=== PATIENT | male | born 1970 | race Caucasian/White ===

== ENCOUNTER → 2018-04-03 | Outpatient (CLI) | payer OTHER ==
[~2018-04-03] MED LIST: ASPI-496 PO; BUTA1CAP57 PO; LANS30CA60 PO; NITR0.4T28 SL
== END | disposition home or self-care (01) ==
LOC: CFH 06:41
PROVIDERS: ATTEND Internal Medicine Cardiovascular Disease
DX: I34.0 Nonrheumatic mitral (valve) insufficiency (principal); I51.7 Cardiomegaly
CPT/HCPCS: 93306

== ENCOUNTER 2019-08-25 17:21 | Outpatient (CLI) | payer OTHER | END 2019-08-25 23:59 | disposition home or self-care (01) | LOC: RAD 17:21 | PROVIDERS: ATTEND Physician Assistant | DX: I82.491 Acute embolism and thrombosis of other specified deep vein of right lower extremity (principal); R22.41 Localized swelling, mass and lump, right lower limb; M79.661 Pain in right lower leg ==

== ENCOUNTER 2019-08-25 18:41 | Emergency (ER) | payer OTHER ==
[~2019-08-25] VITALS: Ht 185.4 cm; Wt 111.4 kg
[2019-08-25 19:09] LABS: BASOPHILS # (AUTO) 0.08 x10^3/uL (0-0.1); BASOPHILS % (AUTO) 1 % (0-1); EOSINOPHILS # (AUTO) 0.54 x10^3/uL (0-0.4); EOSINOPHILS % (AUTO) 5 % (1-7); LYMPHOCYTES # (AUTO) 2.86 x10^3/uL (1-3.4); LYMPHOCYTES % (AUTO) 24 % (22-44); MD NO; MEAN CORPUSCULAR HEMOGLOBIN 31.9 pg (27.5-34.5); MEAN CORPUSCULAR VOLUME 93.8 fL (81-97); MEAN PLATELET VOLUME 8.1 fL (7.4-10.4); MONOCYTES # (AUTO) 0.64 x10^3/uL (0.2-0.8); MONOCYTES % (AUTO) 5 % (2-9); NEUTROPHILS # (AUTO) 7.87 x10^3/uL (1.8-6.8); NEUTROPHILS % (AUTO) 66 % (42-75); PLATELET COUNT 218 x10^3/uL (130-400); RED BLOOD COUNT 4.94 x10^6/uL (4.38-5.82); RED CELL DISTRIBUTION WIDTH 12.9 % (9.4-14.8)
[2019-08-25 19:17] LABS: INTERNATIONAL NORMALIZED RATIO 0.94 (0.93-1.1)
[2019-08-25 19:18] LABS: ANION GAP 6 mmol/L (5-15); CALCIUM 8.9 mg/dL (8.5-10.1); CHLORIDE 106 mmol/L (98-107); CREATININE 1.12 mg/dL (0.7-1.3)
[2019-08-25 19:20] LABS: ALANINE AMINOTRANSFERASE 30 U/L (12-78); ALKALINE PHOSPHATASE 95 U/L (45-117); BILIRUBIN,TOTAL 0.7 mg/dL (0.2-1.0)
--- NOTE | 2019-08-25 19:25 | NUR ---
patient resting comfortably, awaiting for CT SCAN to rule out a PE, he has good pedal pulses. patient reports he has a hx of an irregular HR and should be on a baby asa but does not take it daily
[2019-08-25 19:50] VITALS: BP 155/91
--- NOTE | 2019-08-25 20:24 | NUR ---
PT SENT TO CT SCAN, HE IS ENDORSING SOME RIGHT LEG PAIN BUT DENIES ANY SOB
[2019-08-25] MEDS ORDERED: OMNIPAQUE 350 MG/ML, 100ML BOTTLE ONE (20:37)
[2019-08-25] MEDS ORDERED: RIVAROXABAN 10 MG TABLET ONE (21:12)
[2019-08-25] MEDS ORDERED: RIVAROXABAN 15 MG TABLET PO ONE (21:30)
== END 2019-08-25 21:42 | disposition home or self-care (01) ==
LOC: ED 21:00
DX: I82.411 Acute embolism and thrombosis of right femoral vein (principal); I82.441 Acute embolism and thrombosis of right tibial vein; I82.431 Acute embolism and thrombosis of right popliteal vein; I82.421 Acute embolism and thrombosis of right iliac vein; I26.99 Other pulmonary embolism without acute cor pulmonale
CPT/HCPCS: 36415; 71275; 80053; 85025; 85610; 85730; 99285; Q9967

== ENCOUNTER 2019-09-06 06:48 | Outpatient (CLI) | payer OTHER | END 2019-09-06 23:59 | disposition home or self-care (01) | LOC: CVU 06:48 | PROVIDERS: ATTEND Internal Medicine Cardiovascular Disease | DX: I34.0 Nonrheumatic mitral (valve) insufficiency (principal); I26.99 Other pulmonary embolism without acute cor pulmonale; I25.10 Atherosclerotic heart disease of native coronary artery without angina pectoris | CPT/HCPCS: 93306; 93356 ==